=== PATIENT | female | born 2000 ===

== ENCOUNTER 2021-05-29 20:08 | Outpatient (CLI) | payer SELFPAY ==
[2021-05-29 22:05] VITALS: BP 133/61
== END 2021-05-29 22:25 | disposition home or self-care (01) ==
LOC: TRG 20:08 → APU 20:25 → TRG 22:25
PROVIDERS: ATTEND Obstetrics & Gynecology
DX: O47.1 False labor at or after 37 completed weeks of gestation (principal); Z3A.39 39 weeks gestation of pregnancy
CPT/HCPCS: 59025

== ENCOUNTER 2021-05-30 13:41 | Inpatient (IN) | payer SELFPAY ==
[2021-05-30] MEDS ORDERED: BUTORPHANOL 2 MG/1 ML INJ IV PRN ×4 (15:20→15:21)
[2021-05-30] MEDS ORDERED: ePHEDrine SULFATE 50 MG/1 ML INJ IV PRN ×3 (15:20→22:37)
[2021-05-30] MEDS ORDERED: NALOXONE 0.4 MG/1 ML INJ IV PRN (15:20)
[2021-05-30] MEDS ORDERED: CARBOPROST TROMETHAMINE 250 MCG/1 ML INJ IM PRN ×2 (15:20→15:21)
[2021-05-30] MEDS ORDERED: MINERAL OIL 30 ML ORAL LIQD PO PRN ×2 (15:20→15:21)
[2021-05-30] MEDS ORDERED: LIDOCAINE (2%) 20 MG/1 ML VIAL 20 ML MDV INFILTRATI ONE ×2 (15:20→16:00)
[2021-05-30] MEDS ORDERED: PROMETHAZINE 25 MG TAB PO PRN (15:20)
[2021-05-30] MEDS ORDERED: LOPERAMIDE 2 MG CAP PO PRN ×2 (15:20→15:21)
[2021-05-30] MEDS ORDERED: NalbUPHINE 10 MG/1 ML INJ IV PRN (15:20)
[2021-05-30] MEDS ORDERED: TERBUTALINE 1 MG/1 ML INJ SUB-Q PRN ×2 (15:20→15:21)
[2021-05-30] MEDS ORDERED: ACETAMINOPHEN 325 MG TAB PO PRN ×2 (15:20→15:21)
[2021-05-30] MEDS ORDERED: OXYTOCIN 10 UNIT/1 ML INJ IM PRN ×2 (15:20→15:21)
[2021-05-30] MEDS ORDERED: ONDANSETRON 4 MG/2 ML INJ IV PRN (15:20)
[2021-05-30] MEDS ORDERED: METHYLERGONOVINE MALEATE 0.2 MG/ML VIAL IM PRN ×2 (15:20→15:21)
[2021-05-30] MEDS ORDERED: fentaNYL 100 MCG/2 ML INJ IV PRN ×2 (15:20→15:21)
[2021-05-30] MEDS ORDERED: miSOPROStol 200 MCG TAB PR PRN ×2 (15:20→15:21)
--- NOTE | 2021-05-30 15:20 | History and Physical Report ---
History of Present Illness Date of examination: 05/30/21 Chief complaint: active labor History of present illness: 20yo G1 at 40.0 weeks presents with contractions cervix 4/100/0 PNC @ [facility]: no records Past History Past Surgical History: no surgical history Family/Genetic History: none Social history: no significant social history - Obstetrical History Expected Date of Delivery: 05/30/21 Actual Gestation: 40 Week(s) 0 Day(s) : 1 Medications and Allergies Allergies Allergy/AdvReac Type Severity Reaction Status Date / Time No Known Allergies Allergy Unverified 05/29/21 20:44 - Vital Signs Vital signs: Vital Signs Pulse Pulse Ox 87 99 05/30/21 14:19 05/30/21 14:19 Temp Pulse Resp BP Pulse Ox 98.4 F 96 H 18 132/80 99 05/30/21 14:21 05/30/21 15:14 05/30/21 14:21 05/30/21 14:21 05/30/21 15:14 - Physical Exam Breasts: Positive: deferred Cardiovascular: Regular rate Lungs: Positive: Clear to auscultation Abdomen: Positive: normal appearance, soft, normal bowel sounds Genitourinary (Female): Positive: normal perenium Vulva: both: normal Uterus: Positive: enlarged Anus/Rectum: Positive: normal perianal skin Extremities: Positive: normal Deep Tendon Reflex Grade: Normal +2 - Obstetrical FHR: category 1 Cervical Dilatation: 4 Cervical Effacement Percentage: 100 station: 0 Results All other labs normal. Assessment and Plan admission CFM ABX Pain meds prn expect BROOKE Xiong MD
[2021-05-30] MEDS ORDERED: LACTATED RINGERS 1,000 ML IV SCH ×2 (15:30)
[2021-05-30 15:43] LABS: Hematocrit 41.8 % (30.3-42.9); Hemoglobin 13.9 gm/dl (10.1-14.3); Mean Corpuscular HGB Conc 33 % (30-34); Mean Corpuscular Volume 87 fl (79-97); Platelet Count 208 K/mm3 (140-440); Red Blood Count 4.84 M/mm3 (3.65-5.03); Red Cell Distribution Width 15.4 % (13.2-15.2)
[2021-05-30] MEDS ORDERED: AMPICILLIN/NS 2 GM/100 ML 2 GM/100 ML BAG IV ONE (16:00)
[2021-05-30] MEDS ORDERED: OXYTOCIN DRIP 30 UNITS/500 ML BAG IV SCH ×4 (16:00)
[2021-05-30] MEDS ORDERED: NALOXONE 2 MG/2 ML INJ IV PRN (22:37)
--- NOTE | 2021-05-30 22:37 | Anesthesia Consultation ---
Anesthesia Consult and Med Hx Date of service: 05/30/21 - Airway Anesthetic Teeth Evaluation: Good ROM Head & Neck: Adequate Mental/Hyoid Distance: Adequate Mallampati Class: Class II Intubation Access Assessment: Probably Good - Pulmonary Exam CTA: Yes - Cardiac Exam Cardiac Exam: RRR - Pre-Operative Health Status ASA Pre-Surgery Classification: ASA2 Proposed Anesthetic Plan: Epidural - Pulmonary Hx Asthma: No COPD: No Hx Pneumonia: No - Cardiovascular System Hx Hypertension: No - Central Nervous System Hx Seizures: No Hx Psychiatric Problems: No - Endocrine Hx Renal Disease: No Hx End Stage Renal Disease: No Hx Hypothyroidism: No Hx Hyperthyroidism: No - Hematic Hx Anemia: No Hx Sickle Cell Disease: No - Other Systems Hx Alcohol Use: No Hx Obesity: Yes
[2021-05-30] MEDS ORDERED: fentaNYL-BUPIV 2 MCG/ML-0.125% 200 MCG/100 ML BAG EPIDURAL SCH (23:00)
--- NOTE | 2021-05-30 23:06 | Progress Note ---
Labor Epidural - Labor Epidural Start Time: 22:47 Stop Time: 23:00 Performed by:: BHARATH ARREDONDO Procedure: Patient is requesting epidural for labor pain. H&P, and labs reviewed. Procedure explained, questions answered, consent obtained. Patient in sitting position with blood pressure cuff and pulse ox on and working. Timeout performed immediately before start of procedure. Sterile Duraprep prep/drape. 3 mL 1% lidocaine skin wheal at L[3]-L[4]. 17-gauge tuohy epidural needle advanced unable to locate epidural space. 3 ml lidocaine injected L2-3, epidural needle advanced to [id number] with saline at [7] cm. 25-gauge spinal needle advanced until clear, free-flowing CSF. Intrathecal dexmedetomidine [5] mcg administered and needle removed. Epidural catheter advanced to [12] cm, negative aspiration for blood and csf, negative test dose 3 ml 1.5% lidocaine with epinephrine. Sterile sponge and tegaderm applied, followed by tape reinforcement. Patient tolerated procedure well.
--- NOTE | 2021-05-31 00:49 | Procedure Note ---
OB Delivery Note - Delivery Date of Delivery: 05/31/21 Surgeon: DIDIER VICENTE - Vaginal Delivery position: OA Intrapartum events: meconium, mult. late decelerations, mult.variable deceleratio Delivery induction: none Delivery augmentation: rupture of membranes, pitocin Delivery monitor: external FHT, external uterine Route of delivery: vacuum extraction Indicators for instrumentation: nonreassuring FHR tracing Delivery placenta: spontaneous Delivery cord: 3 umbilical vessels Episiotomy: none Delivery laceration: 2nd degree Delivery repair: vicryl, chromic Delivery comments: Patient pushed to deliver a viable male over an intact perineum via vacuum assistance with weight and . 3750gm, 8/9 Vacuum applied x3 with no excess force or traction. Vacuum applied to a maximum of 500 mmHg with three pulls total. ANGELIQUE position, tight nuchal cord reduced after delivery. Delivery of the anterior shoulder atraumatic, remainder of d elivery uncomplicated. Cord clamped cut and baby handed to waiting JACQUELINE team. Spontaneous delivery of an intact placenta with three-vessel cord. Inspection of the pelvic anatomy revealed a second-degree vaginal laceration which was repaired with 2-0 chromic and Vicryl in layers in the usual fashion.. Firm fundus, [id number]. All sponge needle and instrument counts correct x2. Mom and baby stable to . Dolores Vicente MD
[2021-05-31] MEDS ORDERED: HYDROcodone/ACETAMINOPHEN 5-325 MG TAB PO PRN (02:12)
[2021-05-31] MEDS ORDERED: BENZOCAINE/MENTHOL 20/0.5% TOP SPRAY 56 GM TP PRN (02:12)
[2021-05-31] MEDS ORDERED: ACETAMINOPHEN 325 MG TAB PO PRN (02:12)
[2021-05-31] MEDS ORDERED: HYDROCORTISONE 25 MG RECTAL SUPP PR PRN (02:12)
[2021-05-31] MEDS ORDERED: LANOLIN/ZINC/DIMETHICONE (LANSINOH) 7 GM TP PRN (02:12)
[2021-05-31] MEDS ORDERED: oxyCODONE /ACETAMINOPHEN 5-325MG TAB PO PRN (02:12)
[2021-05-31] MEDS ORDERED: MAGNESIUM HYDROXIDE (MOM) ORAL LIQD UDC PO PRN (02:12)
[2021-05-31] MEDS ORDERED: KETOROLAC 30 MG/1 ML INJ IV PRN (02:12)
[2021-05-31] MEDS ORDERED: PROMETHAZINE 25 MG RECT SUPP PR PRN (02:12)
[2021-05-31] MEDS ORDERED: ONDANSETRON 4 MG/2 ML INJ IV PRN (02:12)
[2021-05-31] MEDS ORDERED: diphenhydrAMINE 25 MG CAP PO PRN (02:12)
[2021-05-31] MEDS ORDERED: PROMETHAZINE 25 MG TAB PO PRN (02:12)
[2021-05-31] MEDS ORDERED: WITCH HAZEL/ GLYCERIN PAD TP PRN (02:12)
[2021-05-31] MEDS: IBUPROFEN 600 MG TAB PO SCH ×4 (06:11→22:28)
[2021-05-31] MEDS: PRENATAL VIT27-FE FUMARATE-FOLIC ACID VIT TAB PO SCH (09:12)
[2021-05-31] MEDS: DOCUSATE SODIUM 100 MG CAP PO SCH ×2 (09:12→22:28)
--- NOTE | 2021-05-31 09:12 | Progress Note ---
Assessment and Plan A: day of delivery S/P VAVD. Dysuria and lower back pain; possible UTI. P: Urinalysis and urine culture; CBC repeated. IV Rocephin. Monitor vital signs. Subjective - Subjective Date of service: 05/31/21 Principal diagnosis: day of delivery Interval history: Reports lower back pain and dysuria. Mild tachycardia and slight temperature elevation (temp. has now returned to normal). No uterine tenderness. No flank pain. No foul smelling discharge. Reports a small amount of lochia and denies clots. Patient reports: appetite normal, pain well controlled, flatus, ambulating normally, no dizzy ambulation, no nauseated [place]: doing well, bottle feeding Objective - Vital Signs Latest vital signs: Vital Signs Temp Pulse Resp BP BP Pulse Ox Pulse Ox 05/31/21 07:36 98.6 F 121 H 18 117/57 98 05/31/21 06:11 18 05/31/21 05:11 100 05/31/21 04:50 100.0 F H 116 H 18 112/56 99 05/31/21 04:24 128 H 99 05/31/21 04:19 131 H 99 05/31/21 04:15 126 H 115/56 05/31/21 04:14 126 H 99 05/31/21 04:09 129 H 100 05/31/21 04:04 134 H 99 05/31/21 03:59 128 H 99 05/31/21 03:55 127 H 114/55 05/31/21 03:54 123 H 99 05/31/21 03:49 128 H 99 05/31/21 03:44 133 H 99 05/31/21 03:39 122 H 99 05/31/21 03:36 126 H 117/55 05/31/21 03:34 113 H 96 05/31/21 03:29 107 H 100 05/31/21 03:24 98.8 F 107 H 17 99 05/31/21 03:19 106 H 99 05/31/21 03:15 110 H 120/58 05/31/21 03:14 111 H 99 05/31/21 03:09 119 H 99 05/31/21 03:04 127 H 99 05/31/21 02:59 125 H 96 05/31/21 02:54 128 H 99 05/31/21 02:49 128 H 100 05/31/21 02:44 112 H 100 05/31/21 02:39 114 H 99 05/31/21 02:35 115 H 126/67 05/31/21 02:34 105 H 99 05/31/21 02:29 132 H 99 05/31/21 02:24 134 H 99 05/31/21 02:19 142 H 99 05/31/21 02:16 118 H 128/66 05/31/21 02:14 120 H 99 05/31/21 02:09 117 H 99 05/31/21 02:07 115 H 87 05/31/21 02:04 113 H 100 05/31/21 01:59 114 H 100 05/31/21 01:54 119 H 137/63 100 05/31/21 01:49 149 H 99 05/31/21 01:41 144 H 100 05/31/21 01:36 132 H 100 05/31/21 01:31 131 H 100 05/31/21 01:28 122 H 87 05/31/21 01:26 105 H 100 05/31/21 01:21 115 H 100 05/31/21 01:16 111 H 100 05/31/21 01:15 98.9 F 05/31/21 01:11 98 H 100 05/31/21 01:09 90 115/59 05/31/21 01:06 96 H 100 05/31/21 01:01 97 H 100 05/31/21 00:56 104 H 122/58 100 05/31/21 00:53 107 H 92 05/31/21 00:51 105 H 100 05/31/21 00:46 104 H 100 05/31/21 00:41 128 H 99 05/31/21 00:36 108 H 100 05/31/21 00:31 118 H 100 05/31/21 00:26 122 H 100 05/31/21 00:24 110 H 130/60 05/31/21 00:21 100 H 100 05/31/21 00:16 102 H 100 05/31/21 00:11 104 H 100 05/31/21 00:09 95 H 114/56 05/31/21 00:06 97 H 99 05/31/21 00:01 93 H 100 05/30/21 23:59 104 H 88 05/30/21 23:56 92 H 100 05/30/21 23:55 100 H 117/55 05/30/21 23:51 93 H 100 05/30/21 23:46 94 H 100 05/30/21 23:41 95 H 100 05/30/21 23:40 92 H 124/58 05/30/21 23:37 116 H 88 05/30/21 23:36 112 H 100 05/30/21 23:31 117 H 100 05/30/21 23:26 114 H 100 05/30/21 23:25 113 H 106/54 05/30/21 23:21 120 H 100 05/30/21 23:16 118 H 108/52 100 05/30/21 23:11 117 H 98 05/30/21 23:09 112 H 116/57 05/30/21 23:07 109 H 125/59 05/30/21 23:06 106 H 99 05/30/21 23:05 107 H 126/59 05/30/21 23:03 120 H 144/67 05/30/21 23:02 121 H 87 05/30/21 23:01 112 H 132/77 99 05/30/21 22:59 100 H 133/76 05/30/21 22:56 109 H 100 05/30/21 22:51 107 H 99 05/30/21 22:46 103 H 135/76 98 05/30/21 22:41 96 H 99 05/30/21 22:36 98.7 F 108 H 20 98 05/30/21 21:52 99 H 99 05/30/21 21:47 93 H 99 05/30/21 21:42 101 H 99 05/30/21 21:37 103 H 97 05/30/21 21:32 103 H 99 05/30/21 21:27 97 H 98 05/30/21 21:22 95 H 97 05/30/21 21:17 97 H 99 05/30/21 21:12 105 H 97 05/30/21 21:07 99 H 97 05/30/21 21:02 99 H 98 05/30/21 20:57 94 H 99 05/30/21 20:52 99 H 96 05/30/21 20:47 98 H 99 05/30/21 20:42 98 H 98 05/30/21 20:37 100 H 99 05/30/21 20:32 94 H 97 05/30/21 20:28 89 87 05/30/21 20:27 94 H 99 05/30/21 20:22 93 H 98 05/30/21 20:17 100 H 98 05/30/21 20:12 95 H 99 05/30/21 20:07 99 H 98 05/30/21 20:02 99 H 98 05/30/21 19:57 101 H 98 05/30/21 19:52 103 H 98 05/30/21 19:47 96 H 100 05/30/21 19:42 99 H 98 05/30/21 19:37 101 H 99 05/30/21 19:32 95 H 95 05/30/21 19:27 96 H 99 05/30/21 19:22 101 H 99 05/30/21 19:17 100 H 98 05/30/21 19:12 97 H 98 05/30/21 19:07 98 H 100 05/30/21 19:06 97 H 92 05/30/21 19:05 88 150/79 05/30/21 19:02 98.8 F 98 H 19 100 05/30/21 18:57 96 H 98 05/30/21 18:52 94 H 99 05/30/21 18:51 98.2 F 97 H 16 136/73 136/73 05/30/21 18:50 97 H 145/85 05/30/21 18:32 99 H 98 05/30/21 18:27 86 98 05/30/21 18:22 94 H 95 05/30/21 18:17 96 H 97 05/30/21 18:12 95 H 96 05/30/21 18:11 97 H 93 05/30/21 18:07 101 H 97 05/30/21 18:03 98 H 91 05/30/21 18:02 95 H 98 05/30/21 17:57 95 H 98 05/30/21 17:56 99 H 89 05/30/21 17:52 95 H 97 05/30/21 17:51 97 H 93 05/30/21 17:47 102 H 97 05/30/21 17:42 94 H 95 05/30/21 17:37 97 H 98 05/30/21 17:32 104 H 98 05/30/21 17:27 101 H 99 05/30/21 17:22 92 H 100 05/30/21 17:17 83 99 05/30/21 17:12 93 H 98 05/30/21 17:07 94 H 99 05/30/21 17:02 89 98 05/30/21 16:57 87 98 05/30/21 16:35 94 H 98 05/30/21 16:14 94 H 97 05/30/21 16:09 94 H 97 05/30/21 16:04 96 H 97 05/30/21 15:59 105 H 97 05/30/21 15:54 97 H 97 05/30/21 15:49 105 H 97 05/30/21 15:48 103 H 90 05/30/21 15:44 92 H 98 05/30/21 15:42 20 05/30/21 15:39 92 H 98 05/30/21 15:34 96 H 99 05/30/21 15:29 93 H 98 05/30/21 15:24 91 H 99 05/30/21 15:19 95 H 98 05/30/21 15:14 96 H 99 05/30/21 15:09 86 98 05/30/21 15:04 93 H 98 05/30/21 14:59 96 H 99 05/30/21 14:54 95 H 99 05/30/21 14:49 93 H 98 05/30/21 14:44 88 98 05/30/21 14:39 95 H 98 05/30/21 14:34 89 98 05/30/21 14:29 89 99 05/30/21 14:24 88 99 05/30/21 14:21 98.4 F 86 18 132/80 98 05/30/21 14:20 89 132/80 05/30/21 14:19 87 99 Intake and Output 05/30/21 05/31/21 05/31/21 23:59 07:59 15:59 Intake Total 11 5.333 120 Output Total 700 400 Balance 4.665 -280 Intake: IV 5.333 PITOCin/NS 30 UNIT/500ML 5.333 30 units In 500 ml @ 2 mls/hr IV TITR CLAY Rx#: [id number] Intake, Free Water 120 Output: Urine 700 400 Indwelling Catheter 300 Uretheral (Bailey) 400 Void 400 Other: Total, Output Amount 300 400 # Voids Void 1 1 Estimated Blood Loss 300 - Exam Cardiovascular: Present: Regular rate Lungs: Present: Clear to auscultation Abdomen: Present: normal appearance, soft, normal bowel sounds. Absent: di stention, tenderness, guarding, rigidity Uterus: Present: normal, firm, fundal height below umbilicus. Absent: bogginess, tenderness Extremities: Present: edema. Absent: tenderness - Labs Labs: Abnormal lab results 05/30/21 Range/Units 15:10 WBC 15.3 H (4.5-11.0) K/mm3 RDW 15.4 H (13.2-15.2) %
[2021-05-31 13:10] LABS: Basophils % (Auto) 0.1 % (0.0-1.8); Eosinophils % (Auto) 0.2 % (0.0-4.3); Hematocrit 29.7 % (30.3-42.9); Lymphocytes # (Auto) 2.2 K/mm3 (1.2-5.4); Lymphocytes % (Auto) 14.3 % (13.4-35.0); Mean Corpuscular HGB Conc 34 % (30-34); Mean Corpuscular Volume 85 fl (79-97); Monocytes # (Auto) 1.8 K/mm3 (0.0-0.8); Monocytes % (Auto) 11.8 % (0.0-7.3); Platelet Count 164 K/mm3 (140-440); Red Blood Count 3.48 M/mm3 (3.65-5.03); Red Cell Distribution Width 15.4 % (13.2-15.2)
[2021-05-31 13:17] LABS: Bacteria,Urine 1+ /HPF (Negative); Bilirubin,Urine NEG (Negative); Blood,Urine MOD (Negative); Color,Urine Amber (Yellow); Urobilinogen,Urine < 2.0 mg/dL (<2.0)
[2021-05-31 13:36] LABS: Alanine Aminotransferase 9 units/L (7-56); Albumin 2.6 g/dL (3.9-5); Blood Urea Nitrogen 11 mg/dL (7-17); Calcium 8.7 mg/dL (8.4-10.2); Hemolysis Index 0
[2021-05-31 13:42] LABS: BUN/Creatinine Ratio 16
[2021-05-31] MEDS ORDERED: SODIUM CHLORIDE 0.9% 500 ML 500 ML IV SCH (15:00)
[2021-05-31] MEDS: cefTRIAXone/NS 1 GM/50 ML 1 GM/50 ML BAG IV SCH (15:16)
[2021-05-31] MEDS: FERROUS SULFATE 325 MG TAB PO SCH (22:28)
[2021-05-31] MEDS ORDERED: TETANUS,DIPH,PERTUSS(ACELL) VACCINE 0.5 ML SYRINGE IM ONE (23:30)
[2021-06-01] MEDS: IBUPROFEN 600 MG TAB PO SCH ×4 (05:34→18:06)
--- NOTE | 2021-06-01 09:34 | Progress Note ---
Assessment and Plan PPD#1 VAVD with endomyometritis 1. Will give augmentin for endomyometritis and repeat cbc 2. Routine care Consider discharge home in the am. Subjective Date of service: 06/01/21 Principal diagnosis: PPD#1 VAVD Interval history: Pt has no complaints. pt is voiding well and vag bleed scant. Pt plans to breast feed at home, states she tried here and it was not successful. pt has support family (her mom) at bedside that plans to help her. Objective - Constitutional Vitals: Vital Signs - 12hr 05/31/21 05/31/21 05/31/21 22:28 22:32 23:54 Temperature 97.2 F L Pulse Rate 85 Respiratory 18 16 Rate Blood Pressure 118/60 O2 Sat by Pulse 98 Oximetry O2 Sat by Pulse 98 Oximetry [ Bilateral Throughout] 06/01/21 06/01/21 05:34 08:14 Temperature 97.5 F L Pulse Rate 75 Respiratory 18 18 Rate Blood Pressure 114/63 O2 Sat by Pulse 100 Oximetry O2 Sat by Pulse Oximetry [ Bilateral Throughout] General appearance: Present: no acute distress - Respiratory Respiratory effort: normal - Breasts Breasts: normal - Cardiovascular Rhythm: regular Extremities: No edema - Genitourinary Female genitourinary: other (Lochia scant, uterus firm 1cm below umbilicus with tenderness) - Integumentary Integumentary: warm, dry - Neurologic Neurologic: moves all extremities - Psychiatric Psychiatric: cooperative - Labs CBC & Chem 7: 05/31/21 12:07 05/31/21 12:07 Labs: Abnormal lab results 05/31/21 05/31/21 05/31/21 Range/Units 09:08 12:07 12:07 WBC 15.3 H (4.5-11.0) K/mm3 RBC 3.48 L (3.65-5.03) M/mm3 Hgb 10.0 L D (10.1-14.3) gm/dl Hct 29.7 L D (30.3-42.9) % RDW 15.4 H (13.2-15.2) % [place] % (Auto) 11.8 H (0.0-7.3) % [place] # (Auto) 1.8 H (0.0-0.8) K/mm3 Seg Neutrophils % 73.6 H (40.0-70.0) % Seg Neutrophils # 11.3 H (1.8-7.7) K/mm3 Carbon Dioxide 20 L (22-30) mmol/L Alkaline Phosphatase 199 H (35-129) units/L Total Protein 5.4 L (6.3-8.2) g/dL Albumin 2.6 L (3.9-5) g/dL Ur Specific [place] 1.001 L (1.003-1.030) Medications & Allergies - Medications Allergies/Adverse Reactions: Allergies No Known Allergies Allergy (Unverified 05/31/21 15:47) Home Medications: Home Medications Medication Instructions Recorded Confirmed Last Taken Type No Known Home Medications [No 05/31/21 05/31/21 Unknown History Reported Home Medications] Active Medications: Generic Name Dose Route Start Last Admin Trade Name Freq PRN Reason Stop Dose Admin Acetaminophen 650 mg 05/30/21 15:20 05/31/21 18:20 Acetaminophen 325 Mg Tab PO 650 mg Q4H PRN Administration Pain, Mild (1-3) Hydrocodone Bitart/Acetaminophen 2 each 05/31/21 02:12 Hydrocodone/Acetaminophen 5-325 Mg Tab PO Q6H PRN Pain, Moderate (4-6) Benzocaine/Menthol 1 spray 05/31/21 02:12 05/31/21 09:11 Benzocaine/Menthol 20/0.5% Top [place] 56 Gm TP 1 spray PRN PRN Administration Episiotomy Pain Bisacodyl 10 mg 05/31/21 02:12 Bisacodyl 10 Mg Rect Supp [place] BID PRN Constipation Butorphanol Tartrate 1 mg 05/30/21 15:21 Butorphanol 2 Mg/1 Ml Inj IV Q2H PRN Pain, Moderate(4-6) LABOR PAIN Butorphanol Tartrate 2 mg 05/30/21 15:21 05/30/21 15:42 Butorphanol 2 Mg/1 Ml Inj IV 2 mg Q2H PRN Administration Pain , Severe (7-10) Carboprost Tromethamine 250 mcg 05/30/21 15:21 Carboprost Tromethamine 250 Mcg/1 Ml Inj IM ONCE PRN Uterine Bleeding Diphenhydramine HCl 25 mg 05/31/21 02:12 Diphenhydramine 25 Mg Cap PO Q6H PRN Itching Docusate Sodium 100 mg 05/31/21 03:00 05/31/21 22:28 Docusate Sodium 100 Mg Cap PO 100 mg BID CLAY Administration Ephedrine Sulfate 10 mg 05/30/21 15:21 Ephedrine Sulfate 50 Mg/1 Ml Inj IV Q2M PRN Hypotension Fentanyl 100 mcg 05/30/21 15:20 05/30/21 19:51 Fentanyl 100 Mcg/2 Ml Inj IV 100 mcg Q2H PRN Administration Pain,Severe (7-10) LABOR PAIN Ferrous Sulfate 325 mg 05/31/21 22:00 05/31/21 22:28 Ferrous Sulfate 325 Mg Tab PO 325 mg BID CLAY Administration Hydrocortisone Acetate 25 mg 05/31/21 02:12 Hydrocortisone 25 Mg Rectal Supp [place] BID PRN Hemorrhoids Oxytocin/Sodium Chloride 30 units in 500 mls @ 2 mls/hr 05/30/21 16:00 05/31/21 00:30 Pitocin/Ns 30 Unit/500ml IV 6 ml/hr TITR CLAY 6 mls/hr Titration Protocol Oxytocin/Sodium Chloride 30 units in 500 mls @ 40 mls/hr 05/30/21 16:00 Pitocin/Ns 30 Unit/500ml IV TITR CLAY Protocol Fentanyl/Bupivacaine/Sodium Chlor 200 mcg in 100 mls @ 12 mls/hr 05/30/21 23:00 05/30/21 23:42 Fentanyl-Bupiv 2 Mcg/Ml-0.125% EPIDURAL 12 mls/hr TITR CLAY Administration Protocol Ceftriaxone Sodium 1 gm in 50 mls @ 100 mls/hr 05/31/21 10:00 05/31/21 15:16 Rocephin/Ns 1 Gm/50 Ml IV 100 mls/hr Q24H CLAY Administration Protocol Sodium Chloride 500 mls @ 50 mls/hr 05/31/21 15:00 05/31/21 15:16 Nacl 0.9% 500 Ml IV 50 mls/hr DIRECT CLAY Administration Ibuprofen 600 mg 05/31/21 02:45 06/01/21 05:34 Ibuprofen 600 Mg Tab PO 600 mg Q6HR CLAY Administration Ketorolac Tromethamine 30 mg 05/31/21 02:12 Ketorolac 30 Mg/1 Ml Inj IV 06/05/21 02:11 Q6H PRN Pain, Moderate (4-6) Loperamide HCl 2 mg 05/30/21 15:21 Loperamide 2 Mg Cap PO ONCE PRN give with Hemabate Magnesium Hydroxide 30 ml 05/31/21 02:12 Magnesium Hydroxide (Mom) Oral Liqd Udc PO HS PRN Constipation Methylergonovine Maleate 0.2 mg 05/30/21 15:21 Methylergonovine Maleate 0.2 Mg/Ml Vial IM ONCE PRN Uterine Bleeding Mineral Oil 30 ml 05/30/21 15:21 Mineral Oil 30 Ml Oral Liqd PO QHS PRN Constipation Misoprostol 800 mcg 05/30/21 15:21 Misoprostol 200 Mcg Tab [place] ONCE PRN Uterine Bleeding Multi-Ingredient Ointment 1 applic 05/31/21 02:12 Lanolin/Zinc/Dimethicone (Lansinoh) 7 Gm TP PRN PRN Sore Nipples Multivitamins/Iron/Calcium 1 each 05/31/21 10:00 05/31/21 09:12 [id number] Fumarate-Folic Acid Vit Tab PO 1 each QDAY CLAY Administration Nalbuphine HCl 10 mg 05/30/21 15:20 Nalbuphine 10 Mg/1 Ml Inj IV Q2H PRN Pain, Moderate (4-6) Naloxone HCl 0.2 mg 05/30/21 22:37 Naloxone 2 Mg/2 Ml Inj IV Q5M PRN Respiratory sedation Ondansetron HCl 4 mg 05/30/21 15:20 Ondansetron 4 Mg/2 Ml Inj IV Q8H PRN Nausea And Vomiting Oxycodone/Acetaminophen 1 tab 05/31/21 02:12 Oxycodone /Acetaminophen 5-325mg Tab PO Q6H PRN Pain, Moderate (4-6) Promethazine HCl 25 mg 05/30/21 15:20 Promethazine 25 Mg Tab PO Q6H PRN Nausea And Vomiting Promethazine HCl 25 mg 05/31/21 02:12 Promethazine 25 Mg Rect Supp [place] Q6H PRN Nausea And Vomiting Terbutaline Sulfate 0.25 mg 05/30/21 15:21 Terbutaline 1 Mg/1 Ml Inj SUB-Q ONCE PRN Hyperstimulation/Hypertonicity Witch Dominique/Glycerin 1 each 05/31/21 02:12 05/31/21 09:11 Witch Dominique/ Glycerin Pad TP 1 each PRN PRN Administration Hemorrhoid/cleansing/soothing
[2021-06-01 09:44] LABS: Basophils # (Auto) 0.1 K/mm3 (0.0-0.1); Basophils % (Auto) 0.8 % (0.0-1.8); Eosinophils # (Auto) 0.1 K/mm3 (0.0-0.4); Eosinophils % (Auto) 0.9 % (0.0-4.3); Hematocrit 31.4 % (30.3-42.9); Lymphocytes # (Auto) 2.9 K/mm3 (1.2-5.4); Lymphocytes % (Auto) 24.9 % (13.4-35.0); Mean Corpuscular HGB Conc 32 % (30-34); Mean Corpuscular Volume 87 fl (79-97); Monocytes # (Auto) 1.1 K/mm3 (0.0-0.8); Monocytes % (Auto) 9.1 % (0.0-7.3); Platelet Count 185 K/mm3 (140-440); Red Blood Count 3.63 M/mm3 (3.65-5.03); Red Cell Distribution Width 15.4 % (13.2-15.2)
[2021-06-01] MEDS: DOCUSATE SODIUM 100 MG CAP PO SCH ×2 (09:57→22:08)
[2021-06-01] MEDS: PRENATAL VIT27-FE FUMARATE-FOLIC ACID VIT TAB PO SCH (09:58)
[2021-06-01] MEDS: FERROUS SULFATE 325 MG TAB PO SCH ×2 (09:58→22:08)
[2021-06-01] MEDS ORDERED: FLU VACC QUAD 2021-22(6MOS UP)/PF 60 MCG/0.5 ML SYRINGE IM ONE (10:00)
--- NOTE | 2021-06-01 12:30 | Post Anesthesia Evaluation ---
- Post Anesthesia Evaluation Patient Participated: Yes Airway Patent: Yes Stable Respiratory Function: Yes Nausea/Vomiting: No Temp > 96.8F: Yes Pain Manageable: Yes Adequeate Hydration: Yes Anesthesia Complications: No Block Receding Appropriately: Yes Patient on Ventilator: No
[2021-06-01] MEDS: AMOXICILLIN/K CLAV 875/125MG TAB PO SCH ×2 (12:34→22:08)
[2021-06-01] MEDS: cefTRIAXone/NS 1 GM/50 ML 1 GM/50 ML BAG IV SCH (16:15)
[2021-06-02] MEDS: IBUPROFEN 600 MG TAB PO SCH ×2 (00:08→06:15)
[2021-06-02] MEDS: FERROUS SULFATE 325 MG TAB PO SCH (09:45)
[2021-06-02] MEDS: AMOXICILLIN/K CLAV 875/125MG TAB PO SCH (09:45)
[2021-06-02] MEDS: PRENATAL VIT27-FE FUMARATE-FOLIC ACID VIT TAB PO SCH (09:45)
[2021-06-02] MEDS: DOCUSATE SODIUM 100 MG CAP PO SCH (09:45)
--- NOTE | 2021-06-02 10:13 | Progress Note ---
Assessment and Plan PPD#2 doing well 1. Routine PP care and continue oral augmentin 2. Discharge home later today; baby can only go home after pt makes pediatric appt per in house peds. Baby will need follow up as outpt. Subjective Date of service: 06/02/21 Principal diagnosis: PPD#2 VAVD Interval history: Pt has no complaints. pain controlled with meds. Declines contraception. Vag bleed less than a period. Pt trying to breast feed. Objective - Constitutional Vitals: Vital Signs - 12hr 06/02/21 06/02/21 06/02/21 00:04 00:08 06:15 Temperature 98.2 F Pulse Rate 98 H Respiratory 20 18 20 Rate Blood Pressure 121/80 O2 Sat by Pulse 100 Oximetry O2 Sat by Pulse Oximetry [ Bilateral Throughout] 06/02/21 06/02/21 07:52 08:00 Temperature 97.6 F Pulse Rate 73 Respiratory 16 Rate Blood Pressure 116/62 O2 Sat by Pulse 100 Oximetry O2 Sat by Pulse 98 Oximetry [ Bilateral Throughout] General appearance: Present: no acute distress - Respiratory Respiratory effort: normal - Breasts Breasts: normal - Cardiovascular Rhythm: regular - Gastrointestinal General gastrointestinal: Present: soft, non-tender - Genitourinary Female genitourinary: other (Fundus less tender, 2cm below the umbilicus) - Neurologic Neurologic: CNII-XII intact - Psychiatric Psychiatric: cooperative - Labs CBC & Chem 7: 06/01/21 09:23 05/31/21 12:07 Medications & Allergies - Medications Allergies/Adverse Reactions: Allergies No Known Allergies Allergy (Unverified 05/31/21 15:47) Home Medications: Home Medications Medication Instructions Recorded Confirmed Last Taken Type No Known Home Medications [No 05/31/21 05/31/21 Unknown History Reported Home Medications] Active Medications: Generic Name Dose Route Start Last Admin Trade Name Freq PRN Reason Stop Dose Admin Acetaminophen 650 mg 05/30/21 15:20 05/31/21 18:20 Acetaminophen 325 Mg Tab PO 650 mg Q4H PRN Administration Pain, Mild (1-3) Hydrocodone Bitart/Acetaminophen 2 each 05/31/21 02:12 Hydrocodone/Acetaminophen 5-325 Mg Tab PO Q6H PRN Pain, Moderate (4-6) Amoxicillin/Clavulanate Potassium 1 each 06/01/21 10:00 06/02/21 09:45 Amoxicillin/K Clav 875/125mg Tab PO 06/08/21 09:59 1 each Q12HR CLAY Administration Protocol Benzocaine/Menthol 1 spray 05/31/21 02:12 05/31/21 09:11 Benzocaine/Menthol 20/0.5% Top [place] 56 Gm TP 1 spray PRN PRN Administration Episiotomy Pain Bisacodyl 10 mg 05/31/21 02:12 Bisacodyl 10 Mg Rect Supp MD BID PRN Constipation Butorphanol Tartrate 1 mg 05/30/21 15:21 Butorphanol 2 Mg/1 Ml Inj IV Q2H PRN Pain, Moderate(4-6) LABOR PAIN Butorphanol Tartrate 2 mg 05/30/21 15:21 05/30/21 15:42 Butorphanol 2 Mg/1 Ml Inj IV 2 mg Q2H PRN Administration Pain , Severe (7-10) Carboprost Tromethamine 250 mcg 05/30/21 15:21 Carboprost Tromethamine 250 Mcg/1 Ml Inj IM ONCE PRN Uterine Bleeding Diphenhydramine HCl 25 mg 05/31/21 02:12 Diphenhydramine 25 Mg Cap PO Q6H PRN Itching Docusate Sodium 100 mg 05/31/21 03:00 06/02/21 09:45 Docusate Sodium 100 Mg Cap PO 100 mg BID CLAY Administration Ephedrine Sulfate 10 mg 05/30/21 15:21 Ephedrine Sulfate 50 Mg/1 Ml Inj IV Q2M PRN Hypotension Fentanyl 100 mcg 05/30/21 15:20 05/30/21 19:51 Fentanyl 100 Mcg/2 Ml Inj IV 100 mcg Q2H PRN Administration Pain,Severe (7-10) LABOR PAIN Ferrous Sulfate 325 mg 05/31/21 22:00 06/02/21 09:45 Ferrous Sulfate 325 Mg Tab PO 325 mg BID CLAY Administration Hydrocortisone Acetate 25 mg 05/31/21 02:12 Hydrocortisone 25 Mg Rectal Supp MD BID PRN Hemorrhoids Oxytocin/Sodium Chloride 30 units in 500 mls @ 2 mls/hr 05/30/21 16:00 05/31/21 00:30 Pitocin/Ns 30 Unit/500ml IV 6 ml/hr TITR CLAY 6 mls/hr Titration Protocol Oxytocin/Sodium Chloride 30 units in 500 mls @ 40 mls/hr 05/30/21 16:00 Pitocin/Ns 30 Unit/500ml IV TITR CLAY Protocol Fentanyl/Bupivacaine/Sodium Chlor 200 mcg in 100 mls @ 12 mls/hr 05/30/21 23:00 05/30/21 23:42 Fentanyl-Bupiv 2 Mcg/Ml-0.125% EPIDURAL 12 mls/hr TITR CLAY Administration Protocol Sodium Chloride 500 mls @ 50 mls/hr 05/31/21 15:00 05/31/21 15:16 Nacl 0.9% 500 Ml IV 50 mls/hr DIRECT CLAY Administration Ibuprofen 600 mg 05/31/21 02:45 06/02/21 06:15 Ibuprofen 600 Mg Tab PO 600 mg Q6HR CLAY Administration Ketorolac Tromethamine 30 mg 05/31/21 02:12 Ketorolac 30 Mg/1 Ml Inj IV 06/05/21 02:11 Q6H PRN Pain, Moderate (4-6) Loperamide HCl 2 mg 05/30/21 15:21 Loperamide 2 Mg Cap PO ONCE PRN give with Hemabate Magnesium Hydroxide 30 ml 05/31/21 02:12 Magnesium Hydroxide (Mom) Oral Liqd Udc PO HS PRN Constipation Methylergonovine Maleate 0.2 mg 05/30/21 15:21 Methylergonovine Maleate 0.2 Mg/Ml Vial IM ONCE PRN Uterine Bleeding Mineral Oil 30 ml 05/30/21 15:21 Mineral Oil 30 Ml Oral Liqd PO QHS PRN Constipation Misoprostol 800 mcg 05/30/21 15:21 Misoprostol 200 Mcg Tab MD ONCE PRN Uterine Bleeding Multi-Ingredient Ointment 1 applic 05/31/21 02:12 Lanolin/Zinc/Dimethicone (Lansinoh) 7 Gm TP PRN PRN Sore Nipples Multivitamins/Iron/Calcium 1 each 05/31/21 10:00 06/02/21 09:45 [id number] Fumarate-Folic Acid Vit Tab PO 1 each QDAY CLAY Administration Nalbuphine HCl 10 mg 05/30/21 15:20 Nalbuphine 10 Mg/1 Ml Inj IV Q2H PRN Pain, Moderate (4-6) Naloxone HCl 0.2 mg 05/30/21 22:37 Naloxone 2 Mg/2 Ml Inj IV Q5M PRN Respiratory sedation Ondansetron HCl 4 mg 05/30/21 15:20 Ondansetron 4 Mg/2 Ml Inj IV Q8H PRN Nausea And Vomiting Oxycodone/Acetaminophen 1 tab 05/31/21 02:12 Oxycodone /Acetaminophen 5-325mg Tab PO Q6H PRN Pain, Moderate (4-6) Promethazine HCl 25 mg 05/30/21 15:20 Promethazine 25 Mg Tab PO Q6H PRN Nausea And Vomiting Promethazine HCl 25 mg 05/31/21 02:12 Promethazine 25 Mg Rect Supp MD Q6H PRN Nausea And Vomiting Terbutaline Sulfate 0.25 mg 05/30/21 15:21 Terbutaline 1 Mg/1 Ml Inj SUB-Q ONCE PRN Hyperstimulation/Hypertonicity Witch Dominique/Glycerin 1 each 05/31/21 02:12 05/31/21 09:11 Witch Dominique/ Glycerin Pad TP 1 each PRN PRN Administration Hemorrhoid/cleansing/soothing
--- NOTE | 2021-06-02 15:09 | Discharge Summary ---
Providers - Providers Date of Admission: 05/30/21 13:42 Date of discharge: 06/02/21 Attending physician: DIDIER VICENTE MD Primary care physician: DIDIER VICENTE MD Hospitalization Reason for admission: IUP at term (pt in latent labor and given pitocin augmentation) Delivery: vacuum extraction (for recurrent decels) Episiotomy: none Laceration: 2nd degree complications: other (endometritis) Discharge diagnosis: IUP at term delivered [place] baby: male Hospital course: Term pt admitted by Dr. Vicente at 4cm, given antibiotics and then augmented with pitocin. Pt delivered Vacuum assisted for non-reassuring FHR. pt with persistent leucocytosis and endometritis that resolved when given IV and oral antibiotics. Pt was discharged with wbc 11 and oral augmentin to complete 5day course. Pt remained afebrile and mild fundal tenderness Condition at discharge: Good Disposition: 01 HOME / SELF CARE / HOMELESS - Discharge Diagnoses (1) Vacuum extraction, delivered, current hospitalization Status: Acute (2) Acute endomyometritis Status: Acute Plan - Discharge Medications Prescriptions: Amoxicillin/Potassium Clav [Augmentin 875-125 Tablet] 1 each PO BID 5 Days #10 tablet Ibuprofen [Motrin] 800 mg PO Q8HR PRN 21 Days #40 tablet PRN Reason: Pain, Moderate (4-6) - Provider Discharge Summary Additional instructions: [] Smoking cessation referral if applicable(refer to patient education folder for contact #) [] Refer to [facility] Booklet Call your doctor immediately for: * Fever > 100.5 * Heavy vaginal bleeding ( >1 pad per hour) * Severe persistent headache * Shortness of breath * Reddened, hot, painful area to leg or breast * Drainage or odor from incision. * Keep incision clean and dry at all times and follow doctor's instructions regarding bathing/showering - Follow up plan Follow up: DIDIER VICENTE MD [Primary Care Provider] - 7 Days Forms: [facility] Discharge Summary
[2021-06-02 16:54] VITALS: BP 122/74
== END 2021-06-02 18:10 | disposition home or self-care (01) | DRG 806 ==
LOC: TRG 13:41 → APU 13:41 → TRG 15:21 → LD 16:27 → OB 05-31 05:02
PROVIDERS: ADMIT Obstetrics & Gynecology; ATTEND Obstetrics & Gynecology
PROC: 10D07Z6 Extraction of Products of Conception, Vacuum, Via Natural or Artificial Opening (ICD-10-PCS; principal; 2021-05-31)
PROC: 0KQM0ZZ Repair Perineum Muscle, Open Approach (ICD-10-PCS; 2021-05-31)
PROC: 3E0R3BZ Introduction of Anesthetic Agent into Spinal Canal, Percutaneous Approach (ICD-10-PCS; 2021-05-31)
PROC: 00HU33Z Insertion of Infusion Device into Spinal Canal, Percutaneous Approach (ICD-10-PCS; 2021-05-31)
PROC: 3E0234Z Introduction of Serum, Toxoid and Vaccine into Muscle, Percutaneous Approach (ICD-10-PCS; 2021-05-31)
DX: O76 Abnormality in fetal heart rate and rhythm complicating labor and delivery (principal); O86.12 Endometritis following delivery; Z37.0 Single live birth; Z3A.40 40 weeks gestation of pregnancy; Z20.822 Contact with and (suspected) exposure to COVID-19; O99.214 Obesity complicating childbirth; O77.0 Labor and delivery complicated by meconium in amniotic fluid; O70.1 Second degree perineal laceration during delivery; O69.81X0 Labor and delivery complicated by cord around neck, without compression, not applicable or unspecified; O66.5 Attempted application of vacuum extractor and forceps; Z3A.38 38 weeks gestation of pregnancy; Z23 Encounter for immunization
CPT/HCPCS: 36415; 80053; 81001; 85025; 85027; 86850; 86900; 86901; 87086; 90686; 93005; G0378; J3490; J0290; J0595; J0696; J2590; J3010; J7040; J7120; U0003